=== PATIENT | female | born 1970 | race Caucasian/White ===

== ENCOUNTER → 2020-10-17 | Outpatient (CLI) | payer OTHER | END | disposition home or self-care (01) | LOC: LB 15:19 | PROVIDERS: ATTEND Internal Medicine | DX: N39.0 Urinary tract infection, site not specified (principal) ==

== ENCOUNTER 2020-11-03 10:45 | Emergency (ER) | payer OTHER ==
[~2020-11-03] VITALS: Ht 167.6 cm; Wt 137.0 kg
[2020-11-03 11:28] LABS: BASOPHIL % 1.6 % (0.2-1.3); PLATELET COUNT 202 x10^3mcL (179-408)
[2020-11-03 11:30] LABS: RED CELL DISTRIBUTION WIDTH 16.1 % (12.3-17.7)
[2020-11-03 12:01] LABS: CALCIUM 8.7 mg/dL (8.5-10.1); CHLORIDE SERUM 106 mmol/L (98-107); CREATININE SERUM 0.9 mg/dL (0.6-1.0); GFR1 > 60 mL/min; GLUCOSE SERUM 92 mg/dL (74-106); POTASSIUM SERUM 3.9 mmol/L (3.5-5.1); SODIUM SERUM 139 mmol/L (136-145)
[2020-11-03 12:06] LABS: ALBUMIN 4.2 g/dL (3.4-5.0); ALKALINE PHOSPHATASE 69 U/L (46-116); ALT/SGPT 49 U/L (14-59); AST/SGOT 26 U/L (15-37); BILIRUBIN TOTAL 0.61 mg/dL (0.20-1.00); TOTAL PROTEIN, SERUM 8.2 g/dL (6.4-8.2)
[2020-11-03] MEDS ORDERED: LOMOTIL1 TAB PO (12:56)
[2020-11-03] MEDS ORDERED: NAPROSYN500 MG PO (12:56)
[2020-11-03 13:15] VITALS: BP 145/89
== END 2020-11-03 13:15 | disposition home or self-care (01) ==
LOC: ED 10:45
PROVIDERS: Emergency Medicine
DX: M62.830 Muscle spasm of back (principal); R19.7 Diarrhea, unspecified; N39.8 Other specified disorders of urinary system; M79.7 Fibromyalgia; R03.0 Elevated blood-pressure reading, without diagnosis of hypertension; I48.91 Unspecified atrial fibrillation
CPT/HCPCS: 20552; 87491; 87591; J2001; J7030